=== PATIENT | female | born 1950 | race Caucasian/White ===

== ENCOUNTER → 2019-06-05 | Outpatient (CLI) | payer OTHER ==
[~2019-06-05] MED LIST: ANTIVERT/2525 MG PO; ANTIVERT25 MG PO; ATIVAN1 MG PO; CLARITIN10 MG PO; DIOVAN40 MG PO; FIORINAL W/CODE1 CAP PO; HYDROCHLOROTH12.5 M1 PO; LIDEX0.05% T; LOVASTATIN20 MG PO; MAXALT10 MG PO; NEXIUM40 MG PO; PREDNICOT20 MG PO; PREDNISONE10 MG PO; PREDNISONE5 MG PO; PROPRANOLOL HC120 M1; VERAPAMIL HCL180 M1 PO; VICODIN 5/500 505 MG PO; VITAMIN D5000 I2 PO
== END | disposition home or self-care (01) ==
LOC: RAD 13:27
DX: Z12.31 Encounter for screening mammogram for malignant neoplasm of breast (principal); N95.1 Menopausal and female climacteric states; N64.89 Other specified disorders of breast; M81.0 Age-related osteoporosis without current pathological fracture

== ENCOUNTER → 2019-06-17 | Outpatient (CLI) | payer OTHER ==
[2019-06-17 08:48] LABS: BASO % 0.3 % (0.0-1.0); EOS # 0.2 10*3/uL (0.0-0.4); HEMATOCRIT 36.5 % (37.0-47.0); HEMOGLOBIN 11.1 g/dl (12.0-16.0); LYMPH # 2.2 10*3/uL (1.3-4.4); MEAN CORPUSCULAR HGB CONC 30.4 g/dl (33.0-37.0); MEAN PLATELET VOLUME 9.1 fl (9.6-12.3); MONO # 0.6 10*3/uL (0.1-1.0); NEUT % 66.4 % (47.0-73.0); PLATELET COUNT AUTOMATED 366 10*3/uL (130-400); RED BLOOD COUNT 4.62 10*6/uL (4.10-5.10); RED CELL DISTRI WIDTH 15.9 % (0-14.5); WHITE BLOOD COUNT 9.1 10*3/uL (4.8-10.8)
[2019-06-17 09:25] LABS: ALBUMIN 3.5 gm/dl (3.1-4.5); ALKALINE PHOSPHATASE 126 U/L (45-117); BUN 15 mg/dl (7-24); CHLORIDE 110 mmol/L (98-107); CHOLESTEROL 139 mg/dL (<200); CREATININE 1.01 mg/dL (0.55-1.02); FREE T4 0.99 ng/dl (0.76-1.46); HDL CHOLESTEROL 53 mg/dl (40-60); LDL CHOLESTEROL 56 mg/dL (9-159); POTASSIUM 3.8 mmol/L (3.5-5.1); SGOT/AST 20 IU/L (3-35); SGPT/ALT 28 U/L (12-78); SODIUM 144 mmol/L (136-145); TOTAL PROTEIN 7.9 gm/dL (6.4-8.2); TRIGLYCERIDES 148 mg/dl (<150); VLDL CHOLESTEROL 30 mg/dL (6-40)
[2019-06-17 09:28] LABS: VITAMIN D, 25-HYDROXY 15.6 ng/mL (30-100)
== END | disposition home or self-care (01) ==
LOC: LAB 08:31
PROVIDERS: Internal Medicine
DX: I10 Essential (primary) hypertension (principal); E78.2 Mixed hyperlipidemia; E55.9 Vitamin D deficiency, unspecified; D50.9 Iron deficiency anemia, unspecified

== ENCOUNTER 2021-05-05 11:31 | Observation (INO) | payer OTHER ==
[~2021-05-05] VITALS: Ht 165 cm; Wt 88.9 kg
[2021-05-05] VITALS (10 sets, daily range): BP systolic 120–175; BP diastolic 54–98
[~2021-05-05 11:31] MED LIST changes: +CARAFATE1 G1 PO; +DILTIAZEM HCL180 M1 PO; +LISINOPRIL10 M1 PO
[2021-05-05 11:58] LABS: BASO # 0.1 10*3/uL (0.0-0.1); BASO % 0.6 % (0.0-1.0); EOS # 0.2 10*3/uL (0.0-0.4); EOS % 1.9 % (1.0-4.0); HEMATOCRIT 39.5 % (37.0-47.0); LYMPH # 1.7 10*3/uL (1.3-4.4); LYMPH % 20.2 % (27.0-41.0); MEAN CELL VOLUME 82.1 fl (81.0-99.0); MEAN CORPUSCULAR HGB 25.8 pg (27.0-31.0); MEAN CORPUSCULAR HGB CONC 31.4 g/dl (33.0-37.0); MEAN PLATELET VOLUME 9.1 fl (9.6-12.3); MONO # 0.6 10*3/uL (0.1-1.0); MONO % 7.2 % (3.0-9.0); NEUT % 69.7 % (47.0-73.0); PLATELET COUNT AUTOMATED 360 10*3/uL (130-400); RED BLOOD COUNT 4.81 10*6/uL (4.10-5.10); RED CELL DISTRI WIDTH 15.6 % (0-14.5); WHITE BLOOD COUNT 8.5 10*3/uL (4.8-10.8)
[2021-05-05 12:08] LABS: ACT PARTIAL THROMBO TIME 25.4 SECONDS (20.0-32.1)
[2021-05-05 12:14] LABS: ALBUMIN 3.6 gm/dl (3.1-4.5); ALKALINE PHOSPHATASE 104 U/L (45-117); BUN 14 mg/dl (7-24); CHLORIDE 109 mmol/L (98-107); CREATININE 0.83 mg/dL (0.55-1.02); POTASSIUM 3.9 mmol/L (3.5-5.1); SGOT/AST 16 IU/L (3-35); SGPT/ALT 21 U/L (12-78); SODIUM 140 mmol/L (136-145)
[2021-05-05] MEDS ORDERED: OMEPRAZOLE40 MG PO (12:37)
[2021-05-05] MEDS ORDERED: METOCLOPRAMIDE H5 M1 PO (12:37)
[2021-05-05] MEDS ORDERED: LISINOPRIL20 MG PO (12:37)
[2021-05-05] MEDS ORDERED: DILTIAZEM 24HR180 MG PO (12:37)
[2021-05-05] MEDS ORDERED: Carafate1 GM PO (12:39)
[2021-05-06] VITALS: BP 142/66
[2021-05-06 08:00] VITALS: BP 177/78
[2021-05-06] MEDS ORDERED: DILTIAZEM CD240 MG PO (09:03)
[2021-05-06] MEDS ORDERED: 'CLONIDINE0.1 MG PO (09:03)
[2021-05-06 12:00] VITALS: BP 106/62
== END 2021-05-06 16:13 | disposition home or self-care (01) ==
LOC: ED 11:31 → EDHOLD 12:21 → 5E 12:21 → EDHOLD 12:21 → 5E 18:17
PROVIDERS: Emergency Medicine; ADMIT Internal Medicine; ATTEND Internal Medicine
DX: I10 Essential (primary) hypertension (principal); R53.1 Weakness; R06.02 Shortness of breath; R26.81 Unsteadiness on feet; Z20.822 Contact with and (suspected) exposure to COVID-19; Z79.899 Other long term (current) drug therapy; Z79.01 Long term (current) use of anticoagulants

== ENCOUNTER → 2021-05-31 | Outpatient (CLI) | payer OTHER ==
[~2021-05-31] MED LIST changes: +'CLONIDINE0.1 MG PO; +Carafate1 GM PO; +DILTIAZEM 24HR180 MG PO; +DILTIAZEM CD240 MG PO; +LISINOPRIL20 MG PO; +METOCLOPRAMIDE H5 M1 PO; +OMEPRAZOLE40 MG PO
== END | disposition home or self-care (01) ==
LOC: LAB 12:22
PROVIDERS: ATTEND Internal Medicine
DX: R53.81 Other malaise (principal); R53.1 Weakness

== ENCOUNTER → 2021-06-09 | Outpatient (CLI) | payer OTHER ==
[2021-06-10 13:07] LABS: ANTI-DSDNA ANTIBODIES <1 IU/mL (0-9)
== END | disposition home or self-care (01) ==
LOC: LAB 11:06
PROVIDERS: ATTEND Internal Medicine
DX: I10 Essential (primary) hypertension (principal); R25.1 Tremor, unspecified

== ENCOUNTER 2022-02-17 16:02 | Emergency (ER) | payer OTHER ==
[~2022-02-17] VITALS: Ht 165.1 cm; Wt 90.7 kg
[2022-02-17] MEDS ORDERED: LINZESS145 MC1 PO (16:29)
[2022-02-17] MEDS ORDERED: CARBIDOPA-LEVO1 EAC6 PO (16:29)
[2022-02-17 17:30] LABS: BASO % 0.3 % (0.0-1.0); EOS # 0.2 10*3/uL (0.0-0.4); EOS % 2.4 % (1.0-4.0); HEMATOCRIT 38.1 % (37.0-47.0); LYMPH # 2.3 10*3/uL (1.3-4.4); LYMPH % 26.9 % (27.0-41.0); MEAN CELL VOLUME 84.3 fl (81.0-99.0); MEAN CORPUSCULAR HGB 26.8 pg (27.0-31.0); MEAN CORPUSCULAR HGB CONC 31.8 g/dl (33.0-37.0); MEAN PLATELET VOLUME 9.1 fl (9.6-12.3); MONO # 0.8 10*3/uL (0.1-1.0); MONO % 9.1 % (3.0-9.0); NEUT # 5.3 10*3/uL (2.3-7.9); NEUT % 61.1 % (47.0-73.0); PLATELET COUNT AUTOMATED 363 10*3/uL (130-400); RED BLOOD COUNT 4.52 10*6/uL (4.10-5.10); RED CELL DISTRI WIDTH 14.6 % (0-14.5); WHITE BLOOD COUNT 8.7 10*3/uL (4.8-10.8)
[2022-02-17 17:46] LABS: ALKALINE PHOSPHATASE 99 U/L (45-117); BUN 14 mg/dl (7-24); CHLORIDE 110 mmol/L (98-107); CREATININE 0.86 mg/dL (0.55-1.02); LIPASE 116 U/L (73-393); POTASSIUM 3.9 mmol/L (3.5-5.1); SGOT/AST 15 IU/L (3-35); SGPT/ALT 23 U/L (12-78); SODIUM 145 mmol/L (136-145)
[2022-02-17] MEDS ORDERED: MILK OF MA400 MG/5 M PO (18:02)
[2022-02-17] MEDS ORDERED: PROTONIX40 MG PO (18:02)
== END 2022-02-17 18:37 | disposition home or self-care (01) ==
LOC: ED 16:02
PROVIDERS: Family Medicine
DX: K29.70 Gastritis, unspecified, without bleeding (principal); K59.00 Constipation, unspecified; Z79.899 Other long term (current) drug therapy; Z90.710 Acquired absence of both cervix and uterus; Z90.49 Acquired absence of other specified parts of digestive tract; Z98.51 Tubal ligation status

== ENCOUNTER → 2023-11-29 | Outpatient (CLI) | payer MEDICARE ==
[~2023-11-29] MED LIST changes: +CARBIDOPA-LEVO1 EAC6 PO; +LINZESS145 MC1 PO; +MILK OF MA400 MG/5 M PO; +PROTONIX40 MG PO
[2023-11-29 12:31] LABS: BASO % 0.3 % (0.0-1.0); EOS % 0.5 % (1.0-4.0); LYMPH # 1.3 10*3/uL (1.3-4.4); LYMPH % 16.1 % (27.0-41.0); MEAN CELL VOLUME 85.5 fl (81.0-99.0); MEAN CORPUSCULAR HGB 28.3 pg (27.0-31.0); MEAN CORPUSCULAR HGB CONC 33.1 g/dl (33.0-37.0); MEAN PLATELET VOLUME 9.1 fl (9.6-12.3); MONO # 0.2 10*3/uL (0.1-1.0); MONO % 2.8 % (3.0-9.0); NEUT # 6.3 10*3/uL (2.3-7.9); NEUT % 79.9 % (47.0-73.0); PLATELET COUNT AUTOMATED 336 10*3/uL (130-400); RED BLOOD COUNT 4.56 10*6/uL (4.10-5.10); RED CELL DISTRI WIDTH 15.3 % (0-14.5); WHITE BLOOD COUNT 7.8 10*3/uL (4.8-10.8)
[2023-11-29 13:06] LABS: ALKALINE PHOSPHATASE 103 U/L (46-116); BUN 11 mg/dl (9-23); CHLORIDE 105 mmol/L (98-107); POTASSIUM 4.2 mmol/L (3.4-5.1); SGPT/ALT 22 U/L (5-49)
== END | disposition home or self-care (01) ==
LOC: LAB 11:59
PROVIDERS: ATTEND Psychiatry & Neurology Neurology
DX: G89.29 Other chronic pain (principal); R51.9 Headache, unspecified

== ENCOUNTER → 2023-12-19 | Outpatient (CLI) | payer MEDICARE | END | disposition home or self-care (01) | LOC: US 12:17 | PROVIDERS: ATTEND Internal Medicine | DX: R94.4 Abnormal results of kidney function studies (principal) ==

== ENCOUNTER → 2024-04-08 | Outpatient (CLI) | payer MEDICARE | END | disposition home or self-care (01) | LOC: US 03:04 → MRI 10:00 | PROVIDERS: ATTEND Internal Medicine | DX: M51.379 Other intervertebral disc degeneration, lumbosacral region without mention of lumbar back pain or lower extremity pain (principal); I73.9 Peripheral vascular disease, unspecified; M54.50 Low back pain, unspecified; M47.817 Spondylosis without myelopathy or radiculopathy, lumbosacral region ==

== ENCOUNTER → 2024-06-03 | Outpatient (CLI) | payer OTHER ==
[2024-06-03 12:23] LABS: ALKALINE PHOSPHATASE 90 U/L (46-116); TOTAL PROTEIN 7.8 gm/dL (6.0-8.0)
[2024-06-03 12:28] LABS: SGPT/ALT < 7 U/L (5-49)
== END | disposition home or self-care (01) ==
LOC: LAB 11:09
PROVIDERS: ATTEND Psychiatry & Neurology Neurology
DX: R26.0 Ataxic gait (principal); Z79.899 Other long term (current) drug therapy

== ENCOUNTER → 2024-06-25 | Outpatient (CLI) | payer OTHER ==
[~2024-06-25] MED LIST changes: +GADOTERATE MEGLUMINE 10 MMOL/20 ML VIAL IV ONE
== END | disposition home or self-care (01) ==
LOC: MRI 03:37
PROVIDERS: ATTEND Psychiatry & Neurology Neurology
DX: M40.294 Other kyphosis, thoracic region (principal); M48.04 Spinal stenosis, thoracic region; M54.50 Low back pain, unspecified